=== PATIENT | male | born 1940 | race Caucasian/White ===

== ENCOUNTER 2019-04-20 12:42 | Inpatient (IN) | payer OTHER ==
[~2019-04-20] VITALS: Ht 170.2 cm; Wt 103.3 kg
--- NOTE | 2019-04-20 13:01 | NUR ---
REPORT FROM FRENCH KRAFT.
--- NOTE | 2019-04-20 13:39 | NUR ---
PTS STS: PT HAS HAD LOW O2 AT HOME, INCR CONFUSION AT HOME. INCR LOWER LEG EDEMA (HAS NOT HAD EDEMA IN 10 YEARS). BILAT LOWER EXTREM WOUNDS BEING SEEN BY WOUND CARE. WOUNDS X2 MONTHS. LEGS TIGHT, RED, WARM. SMALL AMT YELLOW PURULENT DRAINAGE. CRACKLES BILAT BASES. GRAUSZ IN ROOM FOR EVAL. CALL LUI IN REACH. WOUNDS REDRESSED. 1+DP. PT QUIET, NOT SPEAKING MUCH, SPEAKING FOR HIM. PLAN FOR LABS/XR. REPOSITIONED. TITRATED OF NRB TO SIMPLE O2 MASK, TOLERATING WELL AT THIS POINT.
[2019-04-20] MEDS ORDERED: SODIUM CHLORIDE FLUSH 10ML SYR IVF ONE (14:00)
--- NOTE | 2019-04-20 14:15 | NUR ---
lab called and will be redrawing pt for charles
[2019-04-20 14:26] LABS: ALANINE AMINOTRANSFERASE 19 U/L (12-78); CALCIUM 8.2 mg/dL (8.5-10.1); CHLORIDE 97 mmol/L (98-107); CREATININE 0.84 mg/dL (0.7-1.3)
[2019-04-20 14:30] LABS: ALKALINE PHOSPHATASE 98 U/L (45-117); BILIRUBIN,TOTAL 0.7 mg/dL (0.2-1.0); TROPONIN I < 0.015 ng/mL (0.000-0.045)
[2019-04-20] MEDS ORDERED: PLEASE ENTER ALLERGIES MC SCH (14:30)
[2019-04-20 14:42] LABS: ANION GAP 2 mmol/L (5-15)
[2019-04-20 14:49] LABS: MEAN CORPUSCULAR HEMOGLOBIN 28.6 pg (27.5-34.5); MEAN CORPUSCULAR HGB CONC 30.4 g/dL (33.2-36.2); MEAN CORPUSCULAR VOLUME 94.1 fL (81-97); PLATELET COUNT 241 x10^3/uL (130-400); RED CELL DISTRIBUTION WIDTH 14.5 % (9.4-14.8)
[2019-04-20 14:50] LABS: BASOPHILS # (AUTO) 0.03 x10^3/uL (0-0.1); BASOPHILS % (AUTO) 0 % (0-1); EOSINOPHILS % (AUTO) 1 % (1-7); LYMPHOCYTES # (AUTO) 1.23 x10^3/uL (1-3.4); LYMPHOCYTES % (AUTO) 17 % (22-44); MD MORPH REVIEW ONLY; MONOCYTES # (AUTO) 0.72 x10^3/uL (0.2-0.8); MONOCYTES % (AUTO) 10 % (2-9); NEUTROPHILS # (AUTO) 5.25 x10^3/uL (1.8-6.8); NEUTROPHILS % (AUTO) 72 % (42-75)
[2019-04-20 14:51] LABS: <PLATELET ESTIMATE> ADEQUATE; <PLT MORPHOLOGY> NORMAL PLT MORPH; ANISOCYTOSIS 1+; POLYCHROMASIA 1+
--- NOTE | 2019-04-20 14:51 | NUR ---
CRITICAL ABG, ACIDOTIC. PLAN FOR BIPAP.
--- NOTE | 2019-04-20 15:10 | NUR ---
PT TO BE PLACED ON BIPAP AND MOVED TO TR04.
[2019-04-20] MEDS ORDERED: TIOT18CA INH (15:20)
[2019-04-20] MEDS ORDERED: SIMV5TAB14 PO (15:20)
[2019-04-20] MEDS ORDERED: FURO-93 PO (15:20)
--- NOTE | 2019-04-20 15:20 | NUR ---
PT MOVED TO TRAUMA ROOM. REPORT RECEIVED, CARE ASSUMED. PT PLACED ON MONITORS. SR PER MONITOR. UNABLE TO COMPLETE MED REC R/T LIST NOT AVAILABLE. PER PTS , "I CAN BRING A LIST LATER" PT PLACED ON BIPAP 19/09 60%. PTS AT BEDSIDE.
--- NOTE | 2019-04-20 15:20 | NUR ---
REPORT TO CELESTE KRAFT.
--- NOTE | 2019-04-20 15:22 | NUR ---
HOSPITALIST AT BEDSIDE.
[2019-04-20] MEDS ORDERED: CEFAZOLIN 2,000 MG in SODIUM CHLORIDE 0.9% 50 ML IV SCH (16:00)
[2019-04-20] MEDS ORDERED: ACETAMINOPHEN 325 MG TABLET PO PRN (16:00)
[2019-04-20] MEDS ORDERED: LABETALOL 5MG/ML, 20ML IVPush PRN (16:00)
[2019-04-20] MEDS ORDERED: ONDANSETRON 2MG/ML, 2ML IVPush PRN (16:00)
--- NOTE | 2019-04-20 16:16 | NUR ---
This RN walked past pt's room, noted pt's O2 sat to be 84% with a good wave form, pt sleeping. Pt awakens easily to his name being called. Pt encouraged to take deep breaths. O2 on pt's BiPap increased from 45% to 50%. Pt's O2 sat increased to 95% with these interventions. Pt denies pain, denies other needs. Pt's family member at bedside, she denies needs as well. Reported this to primary RN Adelaide and RT Jay.
[2019-04-20] MEDS ORDERED: ENOXAPARIN 40 MG/0.4 ML ONE (16:23)
[2019-04-20] MEDS ORDERED: FUROSEMIDE 40 MG/4 ML ONE (16:23)
[2019-04-20] MEDS: FUROSEMIDE 40 MG/4 ML IV SCH (16:26)
[2019-04-20] MEDS: ENOXAPARIN 40 MG/0.4 ML SQ SCH (16:26)
[2019-04-20] MEDS ORDERED: ALBUTEROL/IPRATROPIUM 2.5MG/0.5MG, 3 ML HHN SCH (16:30)
--- NOTE | 2019-04-20 16:39 | NUR ---
U/S TECH AT BEDSIDE.
[2019-04-20 16:44] LABS: PROTHROMBIN TIME 10.6 Seconds (9.6-11.5)
[2019-04-20 16:48] LABS: FREE T4 (FREE THYROXINE) 1.12 ng/dL (0.76-1.46); TROPONIN I < 0.015 ng/mL (0.000-0.045)
[2019-04-20] MEDS: CEFAZOLIN PMX 2GM/50ML 50 ML IVPB SCH (16:52)
--- NOTE | 2019-04-20 16:58 | NUR ---
Second PIV inserted. Pt tolerated well, denies other needs.
--- NOTE | 2019-04-20 16:59 | NUR ---
ATTEMPT TO CALL REPORT, NURSE NOT AVAILABLE. DR LAW AT BEDSIDE TO EVAL PT.
--- NOTE | 2019-04-20 17:23 | NUR ---
PT ASSISTED WITH USING URINAL. U/A COLLECTED AND SENT TO LAB. REPORT CALLED TO FREDDY KRAFT. PT TO BE TRANSPORTED VIA [facility].
[2019-04-20 17:29] LABS: MICROSCOPIC AUTO
[2019-04-20 17:33] LABS: CULTURE INDICATED? YES
[2019-04-20 17:58] LABS: HCT (SEDRATE) 41.7 % (39.2-51.8)
[2019-04-20 19:42] VITALS: BP 121/70
[2019-04-20] MEDS: ALBUTEROL/IPRATROPIUM 2.5MG/0.5MG, 3 ML HHN SCH (21:00)
[2019-04-20] MEDS: FAMOTIDINE 20 MG/2 ML IVPush SCH (21:09)
[2019-04-20] MEDS: LISINOPRIL 20 MG TABLET PO SCH (21:10)
[2019-04-20 22:09] LABS: TROPONIN I < 0.015 ng/mL (0.000-0.045)
[2019-04-21] MEDS: CEFAZOLIN PMX 2GM/50ML 50 ML IVPB SCH ×3 (00:51→17:50)
[2019-04-21] MEDS: ALBUTEROL/IPRATROPIUM 2.5MG/0.5MG, 3 ML HHN SCH ×4 (02:14→21:00)
[2019-04-21 04:00] VITALS: BP 116/61
[2019-04-21 04:07] LABS: MEAN CORPUSCULAR HEMOGLOBIN 28.6 pg (27.5-34.5); MEAN CORPUSCULAR HGB CONC 30.7 g/dL (33.2-36.2); MEAN CORPUSCULAR VOLUME 92.9 fL (81-97); PLATELET COUNT 229 x10^3/uL (130-400); RED CELL DISTRIBUTION WIDTH 14.5 % (9.4-14.8)
[2019-04-21 04:17] LABS: ANION GAP 2 mmol/L (5-15); CALCIUM 8.3 mg/dL (8.5-10.1); CHLORIDE 97 mmol/L (98-107); CHOLESTEROL, TOTAL 133 mg/dL (140-239); CREATININE 0.77 mg/dL (0.7-1.3); TRIGLYCERIDES 111 mg/dL (50-200); VLDL CHOLESTEROL 22 mg/dL (0-25)
[2019-04-21 04:19] LABS: CHOL/HDL RATIO 2.4; HDL CHOL % 42 % (26-37); HDL CHOLESTEROL (DIRECT) 56 mg/dL (40-60); LDL CHOLESTEROL,CALCULATED 55 mg/dL (54-169)
[2019-04-21 04:39] LABS: BASOPHILS # (AUTO) 0.04 x10^3/uL (0-0.1); BASOPHILS % (AUTO) 1 % (0-1); EOSINOPHILS # (AUTO) 0.12 x10^3/uL (0-0.4); EOSINOPHILS % (AUTO) 2 % (1-7); LYMPHOCYTES # (AUTO) 1.17 x10^3/uL (1-3.4); LYMPHOCYTES % (AUTO) 14 % (22-44); MD SCAN; MONOCYTES # (AUTO) 0.83 x10^3/uL (0.2-0.8); MONOCYTES % (AUTO) 10 % (2-9); NEUTROPHILS # (AUTO) 6.13 x10^3/uL (1.8-6.8); NEUTROPHILS % (AUTO) 74 % (42-75)
[2019-04-21] MEDS: FAMOTIDINE 20 MG/2 ML IVPush SCH ×2 (08:47→20:22)
[2019-04-21] MEDS: LISINOPRIL 20 MG TABLET PO SCH ×2 (08:47→21:00)
[2019-04-21] MEDS: FUROSEMIDE 40 MG/4 ML IV SCH ×2 (08:48→17:50)
[2019-04-21] MEDS: ENOXAPARIN 40 MG/0.4 ML SQ SCH (17:51)
[2019-04-21] MEDS: ATORVASTATIN 40 MG TABLET PO SCH (20:24)
[2019-04-21] MEDS: MELATONIN 5 MG TABLET PO PRN (22:53)
[2019-04-22] MEDS: CEFAZOLIN PMX 2GM/50ML 50 ML IVPB SCH ×3 (01:53→17:41)
[2019-04-22] MEDS: ALBUTEROL/IPRATROPIUM 2.5MG/0.5MG, 3 ML HHN SCH ×4 (03:00→20:10)
[2019-04-22 04:00] VITALS: BP 101/62
[2019-04-22 04:46] LABS: ANION GAP 2 mmol/L (5-15); CALCIUM 8.4 mg/dL (8.5-10.1); CHLORIDE 95 mmol/L (98-107)
[2019-04-22 04:49] LABS: CREATININE 1.04 mg/dL (0.7-1.3)
[2019-04-22] MEDS: LISINOPRIL 20 MG TABLET PO SCH ×2 (08:54→20:32)
[2019-04-22] MEDS: FAMOTIDINE 20 MG/2 ML IVPush SCH ×2 (08:58→20:31)
[2019-04-22 15:30] VITALS: BP 121/69
[2019-04-22] MEDS: ENOXAPARIN 40 MG/0.4 ML SQ SCH (17:41)
[2019-04-22] MEDS: ATORVASTATIN 40 MG TABLET PO SCH (20:31)
[2019-04-22] MEDS: MELATONIN 5 MG TABLET PO PRN (20:32)
[2019-04-22 21:29] VITALS: BP 111/71
[2019-04-23 00:18] VITALS: BP 111/57
[2019-04-23] MEDS: CEFAZOLIN PMX 2GM/50ML 50 ML IVPB SCH ×2 (01:19→09:15)
[2019-04-23] MEDS: ALBUTEROL/IPRATROPIUM 2.5MG/0.5MG, 3 ML HHN SCH ×3 (03:33→15:13)
[2019-04-23 06:09] LABS: CALCIUM 8.9 mg/dL (8.5-10.1); CREATININE 1.07 mg/dL (0.7-1.3)
[2019-04-23 06:18] LABS: CHLORIDE 97 mmol/L (98-107)
[2019-04-23 06:20] LABS: ANION GAP 1 mmol/L (5-15)
[2019-04-23 07:12] VITALS: BP 103/66
[2019-04-23] MEDS: FAMOTIDINE 20 MG/2 ML IVPush SCH (09:15)
[2019-04-23] MEDS: LISINOPRIL 20 MG TABLET PO SCH (09:15)
[2019-04-23 12:12] VITALS: BP 104/60
[2019-04-23] MEDS ORDERED: LISI-170 PO (13:13)
[2019-04-23] MEDS ORDERED: CEPH-368 PO (13:13)
[2019-04-23] MEDS ORDERED: FAMOTIDINE 20 MG TABLET PO SCH (21:00)
== END 2019-04-23 16:38 | disposition home or self-care (01) | DRG 291 ==
LOC: ED 16:13 → EDIP 16:42 → CCU 17:37 → 3N 04-22 14:51
PROVIDERS: ADMIT Hospitalist; ATTEND Hospitalist
PROC: 5A09357 Assistance with Respiratory Ventilation, Less than 24 Consecutive Hours, Continuous Positive Airway Pressure (ICD-10-PCS; principal; 2019-04-20)
DX: I11.0 Hypertensive heart disease with heart failure (principal); J96.21 Acute and chronic respiratory failure with hypoxia; J96.22 Acute and chronic respiratory failure with hypercapnia; L97.909 Non-pressure chronic ulcer of unspecified part of unspecified lower leg with unspecified severity; E87.4 Mixed disorder of acid-base balance; L03.119 Cellulitis of unspecified part of limb; L03.311 Cellulitis of abdominal wall; I50.23 Acute on chronic systolic (congestive) heart failure; I27.20 Pulmonary hypertension, unspecified; I77.819 Aortic ectasia, unspecified site; I87.8 Other specified disorders of veins; E78.5 Hyperlipidemia, unspecified; G47.30 Sleep apnea, unspecified; Z72.0 Tobacco use; Z93.3 Colostomy status; Z99.81 Dependence on supplemental oxygen
CPT/HCPCS: 36415; 36600; 96361; 96372; 99291; 99292; C8929; J3490; 71045; 80048; 80053; 80061; 81001; 82803; 83036; 83735; 83880; 84100; 84439; 84443; 84484; 85025; 85610; 85651; 87040; 87081; 87086; 93005; 93970; 94640; 94660; G0378; J0690; J1650; J1940; Q9957